=== PATIENT | female | born 1960 | race Caucasian/White ===

== ENCOUNTER 2018-07-31 12:28 | Day surgery (SDC) | payer OTHER ==
[~2018-07-31 12:28] MED LIST: Lactated Ringers 1,000 ML IV SCH; Propofol 200 MG/20 ML SDV ONE; Sodium Chloride 0.9% 10 ML Syringe FLUSH PRN
[2018-07-31] MEDS ORDERED: Propofol 200 MG/20 ML SDV ONE ×2 (13:00→13:26)
--- NOTE | 2018-07-31 13:25 | PCM.OPNOTE ---
- General Post-Op/Procedure Note Date of Surgery/Procedure: 07/31/18 Operative Procedure(s): Colonoscopy Findings: Normal Pre Op Diagnosis: Screening Post-Op Diagnosis: Same Anesthesia Technique: GARRICK Primary Surgeon: Baudilio Feliz Anesthesia Provider: Danita Garrido Complications: None Condition: Good
--- NOTE | 2018-07-31 13:28 | PCM.HPR ---
H & P Addendum review - H & P Addendum Review Date of Original H & P: 07/07/18 Date Reviewed: 07/31/18 Time Reviewed: 12:50 Patient was Examined: No Changes
--- NOTE | 2018-08-01 08:56 | OR ---
Date of Procedure: 07/31/2018 PREOPERATIVE DIAGNOSIS: Colon screening. POSTOPERATIVE DIAGNOSIS: Normal colonoscopy. PROCEDURE: Colonoscopy. ANESTHESIA: IV sedation. DESCRIPTION OF PROCEDURE: The patient was brought to the procedure room where she was placed on her left side and IV sedation administered. Digital rectal exam was performed, which was normal. Colonoscope was inserted and advanced to the level of the cecum without difficulty. Cecal position was confirmed by identifying the appendiceal lumen and ileocecal valve. Prep was good and surfaces were well visualized. Upon withdrawing the scope, the ascending, transverse, and descending colon were normal in appearance. Sigmoid colon and rectum were normal. Retroflexion was normal. Air was removed and the scope withdrawn. The patient tolerated the procedure well and returned to recovery in stable condition. Recommend routine colon screening again in 10 years. ANTONY MACHADO MD /[id number]
== END 2018-07-31 14:25 | disposition home or self-care (01) ==
LOC: LL.SDS 12:28
PROVIDERS: ATTEND Surgery
DX: R10.13 Epigastric pain (principal); I10 Essential (primary) hypertension; E78.5 Hyperlipidemia, unspecified; E04.1 Nontoxic single thyroid nodule; K21.9 Gastro-esophageal reflux disease without esophagitis; M25.472 Effusion, left ankle; Z79.899 Other long term (current) drug therapy; Z79.3 Long term (current) use of hormonal contraceptives
CPT/HCPCS: J2704; J7120